=== PATIENT | male | born 1965 | race African-American/Black ===

== ENCOUNTER 2018-12-24 04:49 | Emergency (ER) | payer OTHER ==
[2018-12-24 05:51] LABS: Absolute Lymphocytes (CBC) 1.8 K/uL (0.7-4.9); Basophils % 0.2 % (0-1.3); Eosinophils % 0.4 % (0-4.4); Hematocrit 45.5 % (39.6-49.0); Lymphocytes % 13.4 % (15.3-44.8); MPV 9.4 fL (7.6-11.3); Monocytes % 6.3 % (3.3-12.3); RBC Red Blood Cell Count 5.21 M/uL (4.33-5.43)
[2018-12-24 06:08] LABS: ALT/SGPT 29 U/L (12-78); AST/SGOT 19 U/L (15-37); Albumin 3.9 g/dL (3.4-5.0); Alkaline Phosphatase 80 U/L (45-117); BUN Blood Urea Nitrogen 14 mg/dL (7-18); Bicarbonate 25 mmol/L (21-32); Bilirubin Direct 0.2 mg/dL (0-0.2); Bilirubin Total 0.8 mg/dL (0.2-1.0); Glucose Level 161 mg/dL (74-106); NT PRO-BNP 124 pg/mL (<125); Potassium 3.4 mmol/L (3.5-5.1); Protein, Total 8.4 g/dL (6.4-8.2); Sodium Level 139 mmol/L (136-145); Troponin (Emerg Dept Use Only) < 0.02 ng/mL (0.0-0.045)
[2018-12-24 06:17] LABS: Protime INR 0.92
--- NOTE | 2018-12-24 06:26 | ER ---
Nurse's Notes [facility] Name: Abdoulaye Parish Age: 53 yrs Sex: Male : 1965 Arrival Date: 12/24/2018 Time: 04:50 Bed 7 Private MD: Diagnosis: Syncope and collapse Presentation: 12/24 04:52 Presenting complaint: EMS states: "we were called out for a 53 year old male who had a jd3 syncope episode. he reported that he has had a headache the last couple of days. today around 0300 he couldn't sleep and sat up on the edge of the bed were he reported feeling nauseous and dizzy and then passed out. when we got there the pt denied pain, but wanted to be seen to make sure everything was ok.". Transition of care: patient was not received from another setting of care. Onset of symptoms was December 24, 2018. Risk Assessment: Do you want to hurt yourself or someone else? Patient reports no desire to harm self or others. Initial Sepsis Screen: Does the patient meet any 2 criteria? No. Patient's initial sepsis screen is negative. Does the patient have a suspected source of infection? No. Patient's initial sepsis screen is negative. Care prior to arrival: Glucose check: 158. 04:52 Method Of Arrival: EMS: [facility] jd3 04:52 Acuity: CASEY 3 jd3 Historical: - Allergies: 05:02 No Known Allergies; jd3 - Home Meds: 05:02 None [Active]; jd3 - PMHx: 05:02 Diabetes - NIDDM; Hypertension; jd3 - PSHx: 05:02 None; jd3 - Immunization history:: Adult Immunizations up to date. - Social history:: Smoking status: Patient/guardian denies using tobacco. - Ebola Screening: : Patient negative for fever greater than or equal to 101.5 degrees Fahrenheit, and additional compatible Ebola Virus Disease symptoms. Screenin:47 Abuse screen: Denies threats or abuse. Nutritional screening: No deficits noted. jd3 Tuberculosis screening: No symptoms or risk factors identified. Fall Risk IV access (20 points). Ambulatory Aid- None/Bed Rest/Nurse Assist (0 pts). Gait- Normal/Bed Rest/Wheelchair (0 pts) Mental Status- Oriented to own ability (0 pts). Total Quiros Fall Scale indicates No Risk (0-24 pts). Assessment: 05:00 General: Appears in no apparent distress. comfortable, Behavior is calm, cooperative, jd3 appropriate for age. Pain: Denies pain. Neuro: Level of Consciousness is awake, alert, obeys commands, Oriented to person, place, time, situation, Moves all extremities. Full function Gait is steady, Speech is normal, Facial symmetry appears normal, Pupils are PERRLA, Reports a syncopal episode. Cardiovascular: Denies chest pain, Capillary refill < 3 seconds Patient's skin is warm and dry. Respiratory: Airway is patent Respiratory effort is even, unlabored, Respiratory pattern is regular, symmetrical, Denies cough, shortness of breath. GI: No signs and/or symptoms were reported involving the gastrointestinal system. : No signs and/or symptoms were reported regarding the genitourinary system. EENT: No signs and/or symptoms were reported regarding the EENT system. Derm: Skin is intact, Skin is dry, Skin is normal, Skin temperature is warm. Musculoskeletal: Circulation, motion, and sensation intact. Range of motion: intact in all extremities. 06:05 Reassessment: Patient appears in no apparent distress at this time. Patient and/or jd3 family updated on plan of care and expected duration. Pain level reassessed. Patient is alert, oriented x 3, equal unlabored respirations, skin warm/dry/pink. awaiting results. Patient denies pain at this time. 06:36 Reassessment: Patient appears in no apparent distress at this time. Patient and/or jd3 family updated on plan of care and expected duration. Pain level reassessed. Patient is alert, oriented x 3, equal unlabored respirations, skin warm/dry/pink. pt reported understanding of discharge instructions. even and steady gait to front of ER with family. Patient denies pain at this time. Vital Signs: 05:03 BP 158 / 77; Pulse 100; Resp 18 S; Temp 98.6(O); Pulse Ox 98% on R/A; Weight 95.25 kg; jd3 Height 5 ft. 6 in. (167.64 cm) (R); Pain 0/10; 06:05 BP 146 / 84; Pulse 84; Resp 14 S; Pulse Ox 99% on R/A; Pain 0/10; jd3 05:03 Body Mass Index 33.89 (95.25 kg, 167.64 cm) jd3 ED Course: 04:50 Patient arrived in ED. ds1 04:52 Garry Graff, RN is Primary Nurse. jd3 04:55 Triage completed. jd3 05:03 Arm band placed on. EKG completed in triage. Results shown to MD. jd3 05:13 Sampson Mello MD is Attending Physician. 05:26 XRAY Chest (1 view) In Process Unspecified. EDMS 05:38 Inserted saline lock: 20 gauge in right antecubital area, using aseptic technique. jd3 Blood collected. 05:39 CT Head Brain wo Cont In Process Unspecified. EDMS 05:48 Patient has correct armband on for positive identification. Bed in low position. Call jd3 light in reach. Side rails up X2. Adult w/ patient. 06:37 No provider procedures requiring assistance completed. IV discontinued, intact, jd3 bleeding controlled, No redness/swelling at site. Pressure dressing applied. Administered Medications: No medications were administered Outcome: 06:25 Discharge ordered by MD. 06:37 Discharged to home ambulatory, with family. jd3 06:37 Condition: stable 06:37 Discharge instructions given to patient, family, Instructed on discharge instructions, follow up and referral plans. Demonstrated understanding of instructions, follow-up care. 06:38 Patient left the ED. jd3 Signatures: Dispatcher [employer] [facility] Asiya García ds1 Sampson Mello MD MD Garry Graff, RN RN jd3 Corrections: (The following items were deleted from the chart) 05:01 04:52 Care prior to arrival: None. jd3 jd3
--- NOTE | 2018-12-24 06:26 | EDPHYS ---
Physician Documentation [facility] Name: Abdoulaye Parish Age: 53 yrs Sex: Male : 1965 Arrival Date: 12/24/2018 Time: 04:50 Bed 7 Private MD: ED Physician Sampson Mello HPI: 12/24 05:43 This 53 yrs old Black Male presents to ER via EMS with complaints of Syncope. gs 05:43 The patient has experienced syncope, became unresponsive. Onset: The symptoms/episode gs began/occurred acutely, just prior to arrival. Duration: This was a single episode, that lasted 1 minute(s). Context: the episode(s) was witnessed, by a significant other, occurred at home, occurred while the patient was sitting, Just prior to the episode the patient experienced lightheadedness, nausea. Associated injury: The patient did not suffer any apparent associated injury. Associated signs and symptoms: Pertinent negatives: abdominal pain, chest pain. Current symptoms: Currently, the patient is not experiencing any symptoms. The patient has not experienced similar symptoms in the past. says yesterday also had headache gradual onset persistent partially relieved with motrin. Historical: - Allergies: 05:02 No Known Allergies; jd3 - Home Meds: 05:02 None [Active]; jd3 - PMHx: 05:02 Diabetes - NIDDM; Hypertension; jd3 - PSHx: 05:02 None; jd3 - Immunization history:: Adult Immunizations up to date. - Social history:: Smoking status: Patient/guardian denies using tobacco. - Ebola Screening: : Patient negative for fever greater than or equal to 101.5 degrees Fahrenheit, and additional compatible Ebola Virus Disease symptoms. ROS: 05:43 All other systems are negative. gs Exam: 05:43 Head/Face: Normocephalic, atraumatic. Eyes: Pupils equal round and reactive to light, gs extra-ocular motions intact. Lids and lashes normal. Conjunctiva and sclera are non-icteric and not injected. Cornea within normal limits. Periorbital areas with no swelling, redness, or edema. ENT: Nares patent. No nasal discharge, no septal abnormalities noted. Tympanic membranes are normal and external auditory canals are clear. Oropharynx with no redness, swelling, or masses, exudates, or evidence of obstruction, uvula midline. Mucous membranes moist. Neck: Trachea midline, no thyromegaly or masses palpated, and no cervical lymphadenopathy. Supple, full range of motion without nuchal rigidity, or vertebral point tenderness. No Meningismus. Chest/axilla: Normal chest wall appearance and motion. Nontender with no deformity. No lesions are appreciated. Cardiovascular: Regular rate and rhythm with a normal S1 and S2. No gallops, murmurs, or rubs. Normal PMI, no JVD. No pulse deficits. Respiratory: Lungs have equal breath sounds bilaterally, clear to auscultation and percussion. No rales, rhonchi or wheezes noted. No increased work of breathing, no retractions or nasal flaring. Abdomen/GI: Soft, non-tender, with normal bowel sounds. No distension or tympany. No guarding or rebound. No evidence of tenderness throughout. Back: No spinal tenderness. No costovertebral tenderness. Full range of motion. Skin: Warm, dry with normal turgor. Normal color with no rashes, no lesions, and no evidence of cellulitis. MS/ Extremity: Pulses equal, no cyanosis. Neurovascular intact. Full, normal range of motion. Neuro: Awake and alert, GCS 15, oriented to person, place, time, and situation. Cranial nerves II-XII grossly intact. Motor strength 5/5 in all extremities. Sensory grossly intact. Cerebellar exam normal. Normal gait. 05:43 ECG was reviewed by the Attending Physician. Vital Signs: 05:03 BP 158 / 77; Pulse 100; Resp 18 S; Temp 98.6(O); Pulse Ox 98% on R/A; Weight 95.25 kg; jd3 Height 5 ft. 6 in. (167.64 cm) (R); Pain 0/10; 06:05 BP 146 / 84; Pulse 84; Resp 14 S; Pulse Ox 99% on R/A; Pain 0/10; jd3 05:03 Body Mass Index 33.89 (95.25 kg, 167.64 cm) jd3 MDM: 05:13 Patient medically screened. 05:43 Differential Diagnosis: cardiac arrhythmia, drug effect, emotional response, idiopathic gs syncope, vasovagal episode. Data reviewed: vital signs, nurses notes. Counseling: I had a detailed discussion with the patient and/or guardian regarding: the historical points, exam findings, and any diagnostic results supporting the discharge/admit diagnosis, lab results, radiology results, the need for outpatient follow up. 06:24 Response to treatment: the patient's symptoms have resolved after treatment, and as a gs result, I will discharge patient. 12/24 05:13 Order name: Basic Metabolic Panel 12/24 05:13 Order name: CBC with Diff; Complete Time: 06:23 12/24 05:13 Order name: LFT's; Complete Time: 06:23 12/24 05:13 Order name: Magnesium; Complete Time: 06:23 12/24 05:13 Order name: NT PRO-BNP; Complete Time: 06:23 12/24 05:13 Order name: PT-INR; Complete Time: 06:23 12/24 05:13 Order name: Troponin (emerg Dept Use Only); Complete Time: 06:23 12/24 05:13 Order name: XRAY Chest (1 view) 12/24 05:13 Order name: EKG; Complete Time: 05:15 12/24 05:13 Order name: Cardiac monitoring; Complete Time: 05:21 12/24 05:13 Order name: EKG - Nurse/Tech; Complete Time: 05:21 12/24 05:13 Order name: IV Saline Lock; Complete Time: 05:49 12/24 05:13 Order name: CT Head Brain wo Cont 12/24 05:14 Order name: Basic Metabolic Panel; Complete Time: 06:23 EDMS 12/24 05:13 Order name: Labs collected and sent; Complete Time: 05:49 12/24 05:13 Order name: O2 Per Protocol; Complete Time: 05:21 12/24 05:13 Order name: O2 Sat Monitoring; Complete Time: 05:21 gs EC:43 Rate is 89 beats/min. Rhythm is regular. CT interval is normal. QRS interval is normal. gs QT interval is normal. No ST changes noted. Clinical impression: Normal ECG. Interpreted by me. Administered Medications: No medications were administered Disposition: 12/24/18 06:25 Discharged to Home. Impression: Syncope and collapse. - Condition is Stable. - Discharge Instructions: Syncope, Managing Your Hypertension. - Medication Reconciliation Form, Thank You Letter, Antibiotic Education, Prescription Opioid Use form. - Follow up: Private Physician; When: 2 - 3 days; Reason: Re-evaluation by your physician. Signatures: Dispatcher [employer] Sampson Thomas MD MD gs Davies, Jonathon RN RN jd3 Corrections: (The following items were deleted from the chart) 06:38 06:25 12/24/2018 06:25 Discharged to Home. Impression: Syncope and collapse. Condition jd3 is Stable. Forms are Medication Reconciliation Form, Thank You Letter, Antibiotic Education, Prescription Opioid Use. Follow up: Private Physician; When: 2 - 3 days; Reason: Re-evaluation by your physician. gs
--- NOTE | 2018-12-24 07:24 | RAD REPORT ---
EXAM DESCRIPTION: RAD - Chest Single View - 12/24/2018 5:27 am CLINICAL HISTORY: Syncope, hypertension COMPARISON: None. TECHNIQUE: AP portable chest image was obtained 0523 hours . FINDINGS: Lungs are clear. Heart and vasculature are normal. No measurable pleural effusion and no p neumothorax. No acute bony abnormality seen. No acute aortic findings suspected. IMPRESSION: No acute cardiopulmonary process.
--- NOTE | 2018-12-24 20:10 | EKG ---
Test Date: 2018-12-24 Test Time: 04:58:33 Sales Trainee: SANTIAGO MEASUREMENT RESULTS: Intervals: Rate: 89 VT: 164 QRSD: 98 QT: 394 QTc: 479 Siren: P: 40 VT: 164 QRS: -20 T: 68 INTERPRETIVE STATEMENTS: Normal sinus rhythm Normal ECG No previous ECG available for comparison Electronically Signed On 12-24-18 20:08:54 CDT by Gerardo Teixeira
--- NOTE | 2018-12-25 10:21 | RAD REPORT ---
EXAM DESCRIPTION: CT - Head Brain Wo Cont - 12/25/2018 6:20 am CLINICAL HISTORY: SYNCOPE COMPARISON: None. TECHNIQUE: CT HEAD WITHOUT IV CONTRAST on 12/24/2018 5:13 AM CDT This exam was performed according to our departmental dose-optimization program, which includes autom ated exposure control, adjustment of the mA and/or kV according to patient size and/or use of iterati ve reconstruction technique. FINDINGS: There is no acute hemorrhage, mass effect or midline shift. Hall-white differentiation is preserved. There is no hydrocephalus. There is no significant volume loss for age. The calvarium is intact. Orbits and globes are unremarkable. The paranasal sinuses are clear. Mastoid air cells are clear. IMPRESSION: No acute intracranial findings. Electronically signed by: Loc Walsh MD 12/24/2018 5:51 AM CDT Due to temporary technical issues with the PACS/Fluency reporting system, reports are being signed by the in house radiologist as a courtesy to ensure prompt reporting. The interpreting radiologist is f ully responsible for the content of the report.
== END 2018-12-24 06:38 | disposition home or self-care (01) ==
LOC: ER 04:49
DX: R55 Syncope and collapse (principal)
CPT/HCPCS: 36415; 70450; 71045; 80048; 80076; 83735; 83880; 84484; 85025; 85610; 93005; 99284